=== PATIENT | male | born 1960 | race Caucasian/White ===

== ENCOUNTER 2017-10-07 10:00 | Outpatient (CLI) | payer OTHER, SELFPAY ==
[2017-10-07 13:06] LABS: Abs Immature Grans 0.02 k/cumm (0.0-0.09); Absolute Basophil Count 0.03 k/cumm (0.0-0.2); Absolute Eosinophil Count 0.17 k/cumm (0.0-0.7); Absolute Lymphocyte Count 1.32 k/cumm (1.2-3.4); Absolute Monocyte Count 0.42 k/cumm (0.11-0.7); Absolute Neutrophil Count 2.85 k/cumm (1.2-6.7); Basophils % 0.6; Eosinophils % 3.5; HGB 15.3 g/dL (13.5-17.5); Immature Grans % 0.4; Lymphocytes % 27.4; Mean Corpuscular Volume 82.3 fL (80-95); Mean Platelet Volume 9.8 fL (8.0-11.0); Monocytes % 8.7; Neutrophils % 59.4; Platelet Count 217 x1000/uL (130-400); RBC 5.47 m/cumm (4.50-6.00); RBC Distribution Width 13.6 % (11.8-14.1); White Blood Cell Count 4.81 k/cumm (4.4-10.8)
[2017-10-07 13:45] LABS: ALT 53 U/L (12-78); AST 33 U/L (15-37); Albumin 3.9 g/dL (3.4-5.0); Alkaline Phosphatase 107 U/L (46-116); Anion Gap 10.4 mmol/L (3-11); BUN 17 mg/dL (7-18); CO2 24.6 mmol/L (21.0-32.0); CREATININE 1.12 mg/dL (0.70-1.30); Calcium 8.3 mg/dL (8.5-10.1); Chloride 105 mmol/L (98-107); Cholesterol 180 mg/dL (50-200); Glucose 85 mg/dL (70-100); HDL Cholesterol 36 mg/dL (40-60); LDL CHOLESTEROL 84 mg/dL (<100); Potassium 4.3 mmol/L (3.5-5.1); Sodium 140 mmol/L (136-145); Total Protein 6.9 g/dL (6.4-8.2); Triglyceride 306 mg/dL (30-150)
== END 2017-10-07 10:01 ==
PROVIDERS: PCP Family Medicine; Visit Provider Family Medicine
DX: E78.1 Pure hyperglyceridemia (principal); J98.01 Acute bronchospasm
CPT/HCPCS: 36415; 80053; 80061; 83721; 85025

== ENCOUNTER 2019-02-16 01:16 | Outpatient (CLI) | payer OTHER, SELFPAY ==
[2019-02-16 09:18] LABS: Calculated LDL 120 mg/dL; Cholesterol 216 mg/dL (<200); Glucose 94 mg/dL (74-106); HDL Cholesterol 42 mg/dL (40-60); Triglyceride 270 mg/dL (<150)
== END 2019-02-16 01:36 ==
PROVIDERS: PCP Family Medicine; Visit Provider Family Medicine
DX: Z00.00 Encounter for general adult medical examination without abnormal findings (principal); Z13.220 Encounter for screening for lipoid disorders; Z13.1 Encounter for screening for diabetes mellitus
CPT/HCPCS: 36415; 80061; 82947

== ENCOUNTER 2020-02-07 03:01 | Outpatient (CLI) | payer OTHER, SELFPAY ==
--- NOTE | 2020-02-07 08:15 | DI.US_ITS ---
APPROVED REPORT EXAM: Comprehensive 2D, Doppler, and color-flow Echocardiogram Patient Location: Out-Patient Manager Massage Department: Jazlyn Proctor RDCS (AE) Indications: TRIPP, Murmur, FX of cardiomyopathy Other Information Study Quality: Good Conclusion Left Ventricle : The left ventricle is normal size. The left ventricular systolic function is normal. The left ventricular ejection fraction is within the normal range. There is normal left ventricular wall thickness. There is normal LV segmental wall motion. The left ventricular diastolic function is normal. LVEF is 60%. Right Ventricle : The right ventricle is normal size. The right ventricular systolic function is norm al. The RVSP is 23.0 mmHg. Atria : The left atrium size is normal. The right atrium size is normal. Mitral Valve : The mitral valve is normal in structure. Mild mitral regurgitation. No evidence of hamilton ral valve stenosis. Great Vessels : The aortic root is normal in size. The ascending aorta is mildly dilated. Aortic arch is normal in caliber. IVC is normal in size and collapses >50% with inspiration. Please see remainder of study for further details. Wall motion Left Ventricle The left ventricle is normal size. The left ventricular systolic function is normal. The left ventric ular ejection fraction is within the normal range. There is normal left ventricular wall thickness. T here is normal LV segmental wall motion. The left ventricular diastolic function is normal. There is no ventricular septal defect visualized. LVEF is 60%. Right Ventricle The right ventricle is normal size. The right ventricular systolic function is normal. The RVSP is 23 .0 mmHg. Atria The left atrium size is normal. The right atrium size is normal. The interatrial septum is intact wit h no evidence for an atrial septal defect. Aortic Valve The aortic valve is normal in structure. Aortic valve is trileaflet. There is no aortic valvular sten osis. Trace aortic regurgitation. Mitral Valve The mitral valve is normal in structure. No evidence of mitral valve stenosis. Mild mitral regurgitat ion. Tricuspid Valve The tricuspid valve is normal in structure. There is no tricuspid valve stenosis. Trace tricuspid reg urgitation. Pulmonic Valve The pulmonary valve is normal in structure. There is no pulmonic valvular stenosis. Trace pulmonic re gurgitation. Great Vessels The aortic root is normal in size. The ascending aorta is mildly dilated. Aortic arch is normal in ca liber. IVC is normal in size and collapses >50% with inspiration. Pericardium There is no pericardial effusion. 2D Dimensions IVSD d PLAX 0.91 cm M: 0.6-1.2 LV Vol A2C d MOD 133.4 mL LVPW d PLAX 0.94 cm M: 0.6 - 1.2 LV Vol A4C d MOD 120.3 mL LVID d PLAX 5.00 cm M: 4.2 - 5.8 LA vol/ BSA A2C s A-L 37.4 mL/m2 LVDs 3.35 cm M: 2.5 - 4.0 LA vol/ BSA A4C s A-L 34.3 mL/m2 Ao Root d 3.42 cm M: 3.1 - 3.7 LA Vol/ BSA Biplane s A-L 36.0 mL/m2 RA Area A4C 19.93 cm2 LA Area A4C s MOD 22.91 cm2 RA Vol/ BSA A4C s A-L 28.1 mL/m2 LA Area A2C s MOD 24.07 cm2 Ao Asc Diam d 3.77 cm M: 2.6 - 3.4 LV EF A4C MOD 61.3 % LV EF Teichholz 61.0 % LV EF A2C MOD 59.1 % LVEF (Giron's) 60.52 % M: 52 - 72 LV EF Biplane MOD 60.5 % LV Volume 93.76 mL M: 62 - 150 SV 77.47 mL LV Volume Index 43.60 mL/m2 M: 34 - 74 SV Index 36.02 mL/m2 LV Vol Biplane MOD 128.0 mL FS 32.75 % M-Mode TAPSE 2.75 cm (M/F) >1.7 LV Diastology E/A Ratio 0.9 MV E Vmax 0.61 (0.4-1.3 m/s) MV A Vmax 0.65 (0.4-1.3 m/s) MV E/A Ratio 0.89 Aortic Valve LVOT Area 3.78 cm2 AoV Area Vmax 2.59 cm2 LVOT Vmax 0.92 m/s AoV Area/ BSA (Vmax) 1.20 cm2/m2 LVOT Mean Dionicio. 0.57 m/s DARYL Mean Dionicio. 2.48 cm2 LVOT Peak Grad 3.4 mmHg DARYL Mean Dionicio. Index 1.15 cm2/m2 LVOT Mean Grad 1.6 mmHg LVOT VTI 0.192 m LVOT Diam s 2.15 cm AoV Vmax 1.34 m/s Velocity Ratio 0.68 AoV Mean Dionicio. 0.86 m/s AoV Peak Grad 7.2 mmHg LVOT SV 72.34 mL AoV Mean Grad 3.5 mmHg AoV VTI 0.231 m AoV Area VTI 3.14 cm2 AoV Area/ BSA (VTI) 1.46 cm/m2 Mitral Valve MV DT 205 (160-240 msec) MR Vmax 4.96 m/s MV PHT 59 msec MR VTI 1.838 m MV Area PHT 3.70 cm2 MR Peak Grad 98.5 mmHg MV VTI 0.249 m MR Mean Grad 76.8 mmHg MV VTI Annulus 0.264 m MR PISA Radius 0.37 cm MV Area VTI 3.08 (4.0-6.0 cm2) MR EROA 0.06 cm2 MR Aliasing Velocity 0.35 m/s MR PISA 0.86 cm2 Pulmonary Valve PV Vmax 0.81 (0.5-1.5 m/s) RVOT Peak Gr. 2.12 mmHg PV Peak Grad 2.6 mmHg RVOT Mean Gr. 1.10 mmHg PV Mean Grad 1.5 mmHg RVOT VTI 0.159 m PV VTI 0.196 m RVOT Vmax 0.73 m/s Tricuspid Valve TR Peak Grad 20.0 mmHg TR Vmax 2.24 m/s RA Pressure 3.00 mmHg RVSP (TR) 23.0 mmHg
== END 2020-02-07 03:21 ==
PROVIDERS: PCP Family Medicine; Visit Provider Family Medicine
DX: R06.00 Dyspnea, unspecified (principal); I34.0 Nonrheumatic mitral (valve) insufficiency
CPT/HCPCS: 93306

== ENCOUNTER 2020-03-03 03:32 | Outpatient (CLI) | payer OTHER, SELFPAY ==
[2020-03-04 19:36] LABS: COVID-19 RT-PCR UVMMC Result Negative (Negative)
== END 2020-03-03 03:52 ==
PROVIDERS: PCP Family Medicine; Visit Provider Family Medicine
DX: Z11.59 Encounter for screening for other viral diseases (principal); Z01.811 Encounter for preprocedural respiratory examination
CPT/HCPCS: U0003

== ENCOUNTER 2020-03-06 03:07 | Outpatient (CLI) | payer OTHER, SELFPAY ==
--- NOTE | 2020-03-07 08:01 | W.PFT ---
Date of service: 03/06/20 Time of Service: 01:02 Pulmonary Function Test Result Interpretation Spirometry: No evidence of obstructive airways disease no bronchodilator response Impression Normal spirometry, when compared to previous one from 09/19/2017, the patient has a 810 cc improvement in FVC and 730 cc improvement in FEV1. Clinical Correlation therefore is recommended.
== END 2020-03-06 03:27 ==
PROVIDERS: PCP Family Medicine; Visit Provider Family Medicine
DX: R06.00 Dyspnea, unspecified (principal)
CPT/HCPCS: 94060

== ENCOUNTER 2020-05-12 12:21 | Outpatient (REF) | payer OTHER, SELFPAY ==
--- NOTE | 2020-05-12 11:40 | PAPNONF_PTH ---
PATIENT: Yaron Sosa LOC: [facility] U#:[id number] AGE/SX: 59/M ROOM: RE05/12/[address]: Melissa Hickman : 1960 BED: DIS: 05/12/2020 SPEC #: [id number] RECD: 05/12/20 13:06 STATUS: JAH REQ #: [id number] TAVIA: 05/12/20 11:[address]: Melissa Hickman DEPT: [facility] Cytology RECD BY: Batsheva Melton ENTERED: 05/12/20 13:07 SP TYPE: JOSELO SCHMID DR: Man Gaston DO Tissues: 1 - BODY FLUID CYTO(NOT S/U/N/EM)[facility] Procedures: BODY FLUID CYTO(NOT SPU/UR/NIP/ENDOM)[facility] Comments: [id number]
--- NOTE | 2020-05-12 11:40 | BOWEL_PTH ---
PATIENT: Yaron Sosa LOC: [facility] U#:[id number] AGE/SX: 59/M ROOM: RE05/12/[address]: Melissa Hickman : 1960 BED: DIS: 05/12/2020 SPEC #: [id number] RECD: 05/12/20 12:58 STATUS: JAH REQ #: [id number] TAVIA: 05/12/20 11:[address]: Melissa Hickman DEPT: Surgical Specimen RECD BY: Batsheva Melton ENTERED: 05/12/20 12:59 SP TYPE: Bowel OTHR DR: Man Gaston DO Tissues: 1 - BIOPSY BOWEL Procedures: GROSS AND MICRO LEVEL 4 Comments: [id number]
== END 2020-05-12 12:22 | disposition home or self-care (01) ==
LOC: LBN 12:21
PROVIDERS: PCP Family Medicine; Visit Provider Surgery
DX: K62.89 Other specified diseases of anus and rectum (principal); K64.8 Other hemorrhoids
CPT/HCPCS: 88305; 88104

== ENCOUNTER 2020-05-27 03:49 | Outpatient (CLI) | payer OTHER, SELFPAY ==
[2020-05-27 08:42] LABS: Abs Immature Grans 0.01 10^3/uL (0.0-0.06); Absolute Basophil Count 0.03 10^3/uL (0.0-0.2); Absolute Eosinophil Count 0.32 10^3/uL (0.0-0.7); Absolute Lymphocyte Count 1.49 10^3/uL (1.2-3.4); Absolute Monocyte Count 0.41 10^3/uL (0.1-0.8); Absolute Neutrophil Count 2.77 10^3/uL (1.2-6.7); Basophils % 0.6; Eosinophils % 6.4; HGB 15.7 g/dL (13.5-17.5); Immature Grans % 0.2; Lymphocytes % 29.6; MCH 27.9 pg (27.0-33.0); MCHC 32.7 % (32.0-36.0); MCV 85.3 fL (80-95); MPV 9.8 fL (8.0-11.0); Monocytes % 8.2; Nucleated RBC 0 %; Platelet Count 219 10^3/uL (130-400); RBC 5.63 10^6/uL (4.36-5.78); RDW 12.6 % (11.8-14.1); WBC 5.03 10^3/uL (4.4-10.8)
[2020-05-27 09:42] LABS: ALT 126 U/L (16-63); AST 53 U/L (15-37); Alkaline Phosphatase 132 U/L (46-116); Anion Gap 8.2 mmol/L (3-11); BUN 15 mg/dL (7-18); Bilirubin, Total 0.7 mg/dL (0.2-1.0); CO2 29.8 mmol/L (21.0-32.0); CREATININE 1.1 mg/dL (0.70-1.30); Calcium 8.7 mg/dL (8.5-10.1); Calculated LDL 132 mg/dL (<100); Chloride 106 mmol/L (98-107); Cholesterol 220 mg/dL (<200); Glucose 89 mg/dL (74-106); HDL Cholesterol 46 mg/dL (40-60); Sodium 144 mmol/L (136-145); Total Protein 6.9 g/dL (6.4-8.2); Triglyceride 211 mg/dL (<150)
== END 2020-05-27 03:50 | disposition home or self-care (01) ==
LOC: LBO 03:49
PROVIDERS: PCP Family Medicine; Visit Provider Family Medicine
DX: R06.09 Other forms of dyspnea (principal); E78.5 Hyperlipidemia, unspecified
CPT/HCPCS: 36415; 80053; 80061; 85025

== ENCOUNTER 2020-10-02 15:56 | Outpatient (CLI) | payer OTHER, SELFPAY ==
[2020-10-02 17:25] LABS: ALT 59 U/L (16-63); AST 31 U/L (15-37); Albumin 3.8 g/dL (3.4-5.0); Alkaline Phosphatase 144 U/L (46-116); Bilirubin, Direct 0.1 mg/dL (0.0-0.2); Bilirubin, Total 0.4 mg/dL (0.2-1.0); Total Protein 6.6 g/dL (6.4-8.2)
== END 2020-10-02 15:57 | disposition home or self-care (01) ==
LOC: LBO 15:59
PROVIDERS: PCP Family Medicine; Visit Provider Family Medicine
DX: R79.89 Other specified abnormal findings of blood chemistry (principal)
CPT/HCPCS: 36415; 80076

== ENCOUNTER 2021-03-16 15:53 | Outpatient (CLI) | payer OTHER, SELFPAY ==
--- NOTE | 2021-03-16 | DI.RAD_ITS ---
Exam(s) XR CHEST 2V PA LATERAL EXAM: XR CHEST 2V PA LATERAL CLINICAL HISTORY: COVID-19 INFECTION, U07.1; DYSPNEA, R06.00 TECHNIQUE: 2D digital imaging was performed. COMPARISON: No exams were available for comparison FINDINGS: MEDIASTINUM: Normal. HEART: Normal. PULMONARY VASCULATURE: Normal. LUNGS: Diffuse ground-glass infiltrates left upper and lower lobes. Question of mild infiltrates at the right lung base. PLEURAL SPACE: No pleural effusion or pneumothorax. BONE:Unremarkable for age. IMPRESSION: Left-sided infiltrates and question of right lower lobe infiltrate. The findings are compatible with COVID-19 pneumonia DATA REPOSITORY: RADIATION DOSE DELIVERED:
== END 2021-03-16 16:13 ==
PROVIDERS: PCP Family Medicine; Visit Provider Nurse Practitioner Family
DX: U07.1 COVID-19 (principal); J12.82 Pneumonia due to coronavirus disease 2019
CPT/HCPCS: 71046

== ENCOUNTER 2021-04-06 15:57 | Outpatient (CLI) | payer OTHER, SELFPAY ==
--- NOTE | 2021-04-06 15:30 | DI.RAD_ITS ---
Exam(s) XR CHEST 2V PA LATERAL EXAM: XR CHEST 2V PA LATERAL CLINICAL HISTORY: COVID-19 CORONAVIRUS INFECTION 2 WEEKS AGO, F/U COVID PNEUMONIA. TECHNIQUE: 2D digital imaging was performed. COMPARISON: CR XR CHEST 2V PA LATERAL from 03/16/2021 FINDINGS: Heart size is normal. The mediastinum is not widened. There are persistent patchy infiltrates bilaterally. No pleural effusions. IMPRESSION: Persistent infiltrates. No pleural effusions.Consistent with Covid 19 pneumonia DATA REPOSITORY: RADIATION DOSE DELIVERED:
== END 2021-04-06 16:17 ==
PROVIDERS: PCP Family Medicine; Visit Provider Family Medicine
DX: U07.1 COVID-19 (principal); J12.82 Pneumonia due to coronavirus disease 2019
CPT/HCPCS: 71046

== ENCOUNTER 2021-04-28 03:06 | Outpatient (CLI) | payer OTHER, SELFPAY ==
[2021-04-28 09:15] LABS: ALT 73 U/L (16-63); AST 44 U/L (15-37); Albumin 4.1 g/dL (3.4-5.0); Alkaline Phosphatase 136 U/L (46-116); Anion Gap 8.2 mmol/L (3-11); BUN 15 mg/dL (7-18); Bilirubin, Total 0.7 mg/dL (0.2-1.0); CO2 27.8 mmol/L (21.0-32.0); CREATININE 0.8 mg/dL (0.70-1.30); Calcium 9.2 mg/dL (8.5-10.1); Chloride 106 mmol/L (98-107); Glucose 92 mg/dL (74-106); Sodium 142 mmol/L (136-145); Total Protein 6.7 g/dL (6.4-8.2)
== END 2021-04-28 03:07 | disposition home or self-care (01) ==
LOC: LBO 03:06
PROVIDERS: PCP Family Medicine; Visit Provider Student in an Organized Health Care Education/Training Program
DX: R74.8 Abnormal levels of other serum enzymes (principal); R79.89 Other specified abnormal findings of blood chemistry
CPT/HCPCS: 36415; 80053

== ENCOUNTER 2021-06-18 02:42 | Outpatient (CLI) | payer OTHER, SELFPAY ==
[2021-06-18 14:08] LABS: ALT 64 U/L (16-63); AST 40 U/L (15-37); Albumin 4.1 g/dL (3.4-5.0); Alkaline Phosphatase 120 U/L (46-116); Bilirubin, Direct 0.1 mg/dL (0.0-0.2); Bilirubin, Total 0.6 mg/dL (0.2-1.0); Total Protein 6.7 g/dL (6.4-8.2)
[2021-06-19 11:02] LABS: Hepatitis C Ab w Rflx HCV PCR Negative (Negative)
[2021-06-19 11:14] LABS: HIV-1/2 Ag & Ab Screen Negative (Negative)
== END 2021-06-18 02:43 | disposition home or self-care (01) ==
LOC: LBO 02:42
PROVIDERS: PCP Family Medicine; Visit Provider Family Medicine
DX: R74.8 Abnormal levels of other serum enzymes (principal); Z11.3 Encounter for screening for infections with a predominantly sexual mode of transmission; Z11.4 Encounter for screening for human immunodeficiency virus [HIV]
CPT/HCPCS: 36415; 80076; 86803; 87389

== ENCOUNTER 2021-12-28 22:06 | Emergency (ER) | payer OTHER, SELFPAY ==
[2021-12-28 22:18] VITALS: BP 146/88; PULSE 67; RESP 16; TEMP 36.8; O2SAT 96
--- NOTE | 2021-12-28 22:30 | ED.GENADUL_ITS ---
Discharge Plan Disposition Patient Disposition: HOME Condition: Stable Discharge Details Clinical Impression: Abrasion of elbow, left, Fall (on)(from) sidewalk curb, initial encounter Primary Care Provider: Man Gaston ED Provider: Monica Huynh Home Meds and New Rx's Prescriptions: Continued mometasone 0.1 % cream 1 applic TP DAILY PRN (Reason: psoriasis) Qty: 45 1RF Complete Multivitamin Tablet 1 tab PO DAILY cholecalciferol (vitamin D3) 50 mcg (2,000 unit) capsule 50 mcg PO DAILY ascorbic acid (vitamin C) 500 mg capsule PO tacrolimus 0.1 % ointment 1 applic TP BID PRN (Reason: rash) Qty: 60 11RF sildenafil 50 mg tablet 50 mg PO DAILY PRN (Reason: sexual activity) Qty: 20 2RF Rx Instructions: administer 30 minutes to 4 hours before activity albuterol sulfate [Ventolin HFA] 90 mcg/actuation HFA aerosol inhaler 2 puff IH Q4H PRN (Reason: shortness of breath or wheezing) Qty: 8.5 5RF Discharge Instructions Instructions: Abrasion (ED), Acute Wounds (ED) Additional Instructions: Keep clean and dry. Change the dressing daily. The tissue adhesive will begin to slough off in approximately 2 to 3 days. Wash with soap and water allowed to air dry daily. Please take Tylenol or Ibuprofen with food every 4-6 hours as needed for pain and swelling. Follow up with primary care provider in 3-5 days. Return to ED sooner if any worsening, signs of infection including increased redness swelling drainage or red streaks, or concerns. Increase oral fluids. Referrals: Man Gaston DO [Primary Care Provider] - 3 days Medical Decision Making Patient had a mechanical fall approximately an hour prior to arrival he reports he was walking outside [facility] he landed on his left side. He has abrasion and laceration noted to his left elbow. Patient is up-to-date on Tdap, I did offer x-rays which patient declined at this time. Wounds are nonsuturable there appears to be 2 different avulsion type wounds to his left elbow. Area was cleaned with chlorhexidine and sterile normal saline and tissue adhesive Dermabond applied. Bleeding is controlled at this time. This text was generated using [employer] system, please disregard any oddities of phrase or misspellings. HPI General Mode of arrival: ambulatory . Date/Time Provider Initiated Documentation: 12/28/21 22:26 . Limitations to Documentation: no limitations . Information obtained by: patient, RN notes reviewed and old records reviewed . HPI Narrative: Patient had a mechanical fall approximately an hour prior to arrival he reports he was walking outside and tripped on a [employer] vent he landed on his left side. He has abrasion and laceration noted to his left elbow. He reports that his knee is somewhat sore. He does have full range of motion no obvious deformity. He reports that he is up-to-date on his tetanus vaccination. He has a past medical history of psoriasis, dyspnea, hyperlipidemia. He did take Tylenol prior to arrival. Last tetanus was in 2020. Related Data Home Medications Medication Instructions Recorded Confirmed tacrolimus 0.1 % topical ointment 1 applic topical BID PRN rash #60 12/19/18 grams mometasone 0.1 % topical cream 1 applic topical DAILY PRN 12/20/18 12/28/21 psoriasis #45 grams ascorbic acid (vitamin C) 500 mg mg PO 01/14/20 06/05/21 capsule cholecalciferol (vitamin D3) 50 50 mcg PO DAILY 01/14/20 12/28/21 mcg (2,000 unit) capsule multivitamin,[id number] 1 tab PO DAILY 01/14/20 12/28/21 (Complete Multivitamin tablet) sildenafil 50 mg tablet 50 mg PO DAILY PRN sexual activity 06/18/21 12/28/21 #20 tabs albuterol sulfate 90 mcg/actuation 2 puff inhalation Q4H PRN 06/22/21 12/28/21 aerosol inhaler (Ventolin HFA) shortness of breath or wheezing #8.5 grams Previous Rx's Medication Instructions Recorded tacrolimus 0.1 % topical ointment 1 applic topical BID PRN rash #60 12/19/18 grams mometasone 0.1 % topical cream 1 applic topical DAILY PRN 12/20/18 psoriasis #45 grams sildenafil 50 mg tablet 50 mg PO DAILY PRN sexual activity 06/18/21 #20 tabs albuterol sulfate 90 mcg/actuation 2 puff inhalation Q4H PRN 06/22/21 aerosol inhaler (Ventolin HFA) shortness of breath or wheezing #8.5 grams Allergies Allergy/AdvReac Type Severity Reaction Status Date / Time No Known Allergies Allergy Verified 12/28/21 22:21 General Stated Complaint: Laceration NIRMAL: 4 Review of Systems Musculoskeletal Musculoskeletal: Reports as per HPI, Denies deformity and Reports joint swelling Integumentary/Breasts Skin/Breast: Reports as per HPI and Reports wounds PFSH All Active Problems (Updated 12/28/21 @ 22:56 by Monica Huynh NP) Abrasion of elbow, left (Acute) Fall (on)(from) sidewalk curb, initial encounter (Acute) Post-COVID chronic cough (Acute) Elevated alkaline phosphatase level (Acute) re-checking 01/2021 per portal question (no symptoms, but seems worthwhile), ik Synovial swelling of knee joint (Acute) Umbilical hernia without obstruction or gangrene (Acute) Reducible right inguinal hernia (Acute) Elevated LFTs (Acute) Asymptomatic 05/17 Hyperlipidemia (Acute) Allergic sinusitis (Acute) Thrombosed external hemorrhoid (Acute) Benign localized prostatic hyperplasia with lower urinary tract symptoms (LUTS) (Acute) Male erectile dysfunction (Acute) Auditory processing disorder (Acute 02/19/13) Bronchospasm (Acute 12/24/15) Dyspnea (Acute 09/14/17) High triglycerides (Acute 09/14/17) 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 Brother Intestinal cancer Colon cancer Maternal Grandfather No problems noted. Paternal Grandfather No problems noted. Maternal Grandmother No problems noted. Paternal Grandmother No problems noted. Son No problems noted. Son No problems noted. Sister Diabetes type 2 FAMILY HISTORY Diabetes Sister Diabetes type 2 Brother No problems noted. Brother No problems noted. Uncle Heart disease blockage Social History Smoking/Tobacco Use Status: Former Tobacco Use tobacco type: cigarettes Quit Date: 02/28/89 Pack-years: 10 Tobacco: How many years used: 10 Second Hand Exposure: No Smoking risk assessment performed?: Yes Alcohol Intake: current Alcohol Intake frequency: a few times a week Alcohol type: wine Drug use: Never Substance use type: does not use Adopted: No Caregiver/Support person: No Household members: spouse and children Housing: house Number of Children: 1 Communication Needs: Hard of Hearing Education Level: college Details: associates degree Do you need help understanding health information?: Rarely 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, [employer] Pets and animals: Yes Pets and animals: dog(s) Sexually active: Yes Do you think of yourself as: straight/heterosexual Current gender identity: male What is your relationship status?: How often do you talk on the phone with friends or family?: never How often do you get together with friends or relatives?: decline to answer How often do you attend judaism or sabianism services?: 1-3 times per year Do you belong to any clubs or organized social groups?: no Panel score (0-1 are the most socially isolated patients): 1 What type of physical activity do you participate in: walking, weight lifting a nd other Duration: 30-45 minutes/day Frequency: 5-6 times per week Criselda/Adventist: Oriental Orthodox Special criselda needs: No Seatbelt use: always Helmet use: Yes Helmet use: always Drive intox or ride w/intox oil truck driver: No Exam Skin Wounds: wounds noted Extrem Left upper extremity: elbow/forearm Details: abrasion and laceration; no deformity Elbow/forearm/wrist images: 1. Abrasion 2. Laceration Course Vital Signs Vital signs: Vital Signs Temperature 36.8 C 12/28/21 22:18 Pulse 67 12/28/21 22:18 Respiratory Rate 16 12/28/21 22:18 Blood Pressure 146/88 H 12/28/21 22:18 Pulse Oximetry 96 12/28/21 22:18 Temperature 36.8 C 12/28/21 22:18 Temperature Source Temporal Artery Scan 12/28/21 22:18 Pulse 67 12/28/21 22:18 Respiratory Rate 16 12/28/21 22:18 Respiratory Effort 12/28/21 22:18 Blood Pressure 146/88 H 12/28/21 22:18 Blood Pressure Position Sitting 12/28/21 22:18 Pulse Oximetry 96 12/28/21 22:18 Oxygen Delivery Method Room Air 12/28/21 22:18 Oxygen Flow Rate 0 12/28/21 22:18 Pain Level 5 12/28/21 22:18
[2021-12-28 23:59] VITALS: BP 146/88; PULSE 67; RESP 16; TEMP 36.8; O2SAT 96
== END 2021-12-28 23:13 | disposition home or self-care (01) ==
PROVIDERS: Emergency Provider Registered Nurse Emergency; PCP Family Medicine
DX: S50.312A Abrasion of left elbow, initial encounter (principal); W01.0XXA Fall on same level from slipping, tripping and stumbling without subsequent striking against object, initial encounter; Y99.0 Civilian activity done for income or pay
CPT/HCPCS: 99282

== ENCOUNTER 2022-01-08 13:15 | Outpatient (REF) | payer OTHER, SELFPAY ==
[2022-01-08 18:47] LABS: COVID-19 PCR Negative (Negative); Influenza A PCR Negative (Negative); Influenza B PCR Negative (Negative); RSV PCR Negative (Negative)
[2022-01-08 18:51] LABS: Source Nasopharynx
== END 2022-01-08 13:16 | disposition home or self-care (01) ==
LOC: LBN 13:15
PROVIDERS: PCP Family Medicine; Visit Provider Physician Assistant Medical
DX: R05.8 Other specified cough (principal); Z20.822 Contact with and (suspected) exposure to COVID-19
CPT/HCPCS: 87631; 87637; U0003

== ENCOUNTER 2023-04-19 05:01 | Outpatient (CLI) | payer OTHER, SELFPAY ==
[2023-04-19 09:13] LABS: Calculated LDL 133 mg/dL (<100); Cholesterol 198 mg/dL (<200); HDL Cholesterol 46 mg/dL (40-60); Triglyceride 96 mg/dL (<150)
[2023-04-19 14:48] LABS: ALT 55 U/L (16-63); AST 34 U/L (15-37); Albumin 3.9 g/dL (3.4-5.0); Alkaline Phosphatase 90 U/L (46-116); Bilirubin, Direct 0.1 mg/dL (0.0-0.2); Bilirubin, Total 0.7 mg/dL (0.2-1.0); Total Protein 6.8 g/dL (6.4-8.2)
== END 2023-04-19 05:02 | disposition home or self-care (01) ==
LOC: LBO 05:01
PROVIDERS: PCP Family Medicine; Visit Provider Family Medicine
DX: E78.5 Hyperlipidemia, unspecified (principal); R74.8 Abnormal levels of other serum enzymes
CPT/HCPCS: 36415; 80061; 80076

== ENCOUNTER 2024-09-11 02:49 | Outpatient (CLI) | payer OTHER, SELFPAY ==
--- NOTE | 2024-09-11 07:15 | DI.MRI_ITS ---
Exam(s) MR LOWER JOINT RT WO EXAM: MR LOWER JOINT RT WO CLINICAL HISTORY: RT medial collateral sprain,s83.401A. TECHNIQUE: Multiplanar multisequence MRI was performed. COMPARISON: No exams were available for comparison FINDINGS: BONES: There is no fracture or contusion pattern. JOINTS: In the medial femoral tibial joint there is loss of the articular cartilage overlying the medial femoral condyle and mild loss overlying the medial tibial plateau. There are small osteophytes projected medially and there is mild subchondral edema. In the lateral femoral tibial joint there is mild loss of the articular cartilage overlying the lateral tibial plateau. There also osteophytes projected laterally. There is thinning of the articular cartilage overlying the lateral patellar facet. There also osteophytes projected medially at the patellofemoral joint. There is a moderate size joint effusion. TENDONS: Extensor mechanism: Unremarkable. Medial retinaculum: Unremarkable. Lateral retinaculum: Unremarkable. Popliteus: Unremarkable. MUSCLES: There is mild muscular fatty atrophy present. MENISCI: There is a large tear of the body and posterior horn of the medial meniscus. The lateral meniscus is unremarkable. SOFT TISSUES: There is a large popliteal cyst. There is edema seen in the soft tissues of the calf and anterior to the patella. This may represent a prepatellar bursitis. LIGAMENTS: Anterior Cruciate: There is a cystic lesion associated with the anterior aspect of the distal ACL which may represent mucoid degeneration. There do appear to be intact ACL fibers. Posterior Cruciate: Unremarkable. Medial Collateral:The MCL is intact. There is some high signal on the T2 weighted images around the ligament which may represent sprain. Lateral Collateral: Unremarkable. OTHER: IMPRESSION: 1. Tricompartment moderate arthrosis of the knee. 2. Moderate joint effusion. 3. Large tear involving the body and posterior horn of the medial meniscus. 4. No evidence of an MCL tear. Fluids is seen around the ligament which may represent a sprain. 5. No evidence of a ligament tear. 6. Large popliteal cyst. 7. Question of prepatellar bursitis. DATA REPOSITORY:
--- NOTE | 2024-09-11 07:15 | DI.MRI_ITS ---
Exam(s) MR LOWER JOINT LT WO EXAM: MR LOWER JOINT LT WO CLINICAL HISTORY: Higgins's cyst,SYNOVIAL CYST POPLITEAL SPACE,M71.22. TECHNIQUE: Multiplanar multisequence MRI was performed. COMPARISON: There are no priors for comparison. FINDINGS: BONES: There is no fracture or contusion pattern. JOINTS: There is complete loss of the articular cartilage overlying the medial femoral condyle and the medial tibial plateau. There is thinning of the articular cartilage in the lateral femoral tibial joint and overlying the lateral patellar facet. There osteophytes arising from all 3 joint compartme nts. Subchondral edema is seen in the medial femoral tibial joint and the patellofemoral joint. There is a large joint effusion. TENDONS: Extensor mechanism: Unremarkable. Medial retinaculum: Unremarkable. Lateral retinaculum: Unremarkable. Popliteus: Unremarkable. MUSCLES: There is mild muscular fatty atrophy present. MENISCI: There is a tear involving the body of the medial meniscus. The lateral meniscus is unremarkable. SOFT TISSUES: There is a large popliteal cyst. LIGAMENTS: Anterior Cruciate: The anterior cruciate ligament is not visualized consistent with a tear. Posterior Cruciate: Unremarkable. Medial Collateral:Unremarkable. Lateral Collateral: Unremarkable. OTHER: IMPRESSION: 1. Marked arthrosis involving all 3 joint compartments of the knee. The findings are most marked in the medial femoral tibial joint. 2. Large joint effusion. 3. Tear involving the body of the medial meniscus. 4. Anterior cruciate ligament tear. The ligament is not visualized. This may be longstanding. 5. Large popliteal cyst. 6. Mild muscular fatty atrophy. DATA REPOSITORY:
== END 2024-09-11 03:09 ==
PROVIDERS: PCP Family Medicine; Visit Provider Family Medicine
DX: S83.241A Other tear of medial meniscus, current injury, right knee, initial encounter (principal); M71.22 Synovial cyst of popliteal space [Baker], left knee; X58.XXXA Exposure to other specified factors, initial encounter
CPT/HCPCS: 73721

== ENCOUNTER 2024-09-19 13:46 | Outpatient (CLI) | payer OTHER, SELFPAY ==
--- NOTE | 2024-09-19 11:15 | DI.RAD_ITS ---
Exam(s) XR KNEE RT 2V AP,LAT EXAM: XR KNEE RT 2V AP,LAT CLINICAL HISTORY: BILAT KNEE PAIN. TECHNIQUE: 2D digital imaging was performed. Three views. COMPARISON: MR MR LOWER JOINT LT WO from 09/11/2024 FINDINGS: BONES: No acute fracture is present. No bony destructive lesion is seen. JOINTS: [id number] narrowing of the medial femoral tibial joint space. Mild periarticular spurring. Periarticular spurring is also noted at the patella. There is mild varus angulation at the knee. Chondrocalcinosis is present. A small joint effusion is seen. SOFT TISSUE: Normal. IMPRESSION: [id number] degenerative changes. DATA REPOSITORY: RADIATION DOSE DELIVERED:
--- NOTE | 2024-09-19 11:15 | DI.RAD_ITS ---
Exam(s) XR KNEE LT 2V AP,LAT EXAM: XR KNEE LT 2V AP,LAT CLINICAL HISTORY: BILAT KNEE PAIN. TECHNIQUE: 2D digital imaging was performed. Three views. COMPARISON: CR XR KNEE RT 2V AP,LAT from 09/19/2024 FINDINGS: BONES: No acute fracture is present. No bony destructive lesion is seen. JOINTS: There is severe narrowing of the medial femoral tibial joint space with prominent periarticular spurring. There is some lateral subluxation of the tibia in relation to the femur and flattening of the tibial spines. There is varus angulation at the knee. There is widening of the lateral femoral tibial joint space. Chondrocalcinosis is faintly seen. There is mild spurring at the patellofemoral joint. A small joint effusion is seen. SOFT TISSUE: Posterior soft tissue calcification. IMPRESSION: Severe degenerative changes of the medial femoral tibial joint. DATA REPOSITORY: RADIATION DOSE DELIVERED:
== END 2024-09-19 13:47 | disposition home or self-care (01) ==
LOC: DIORS 13:46
PROVIDERS: PCP Family Medicine; Visit Provider Student in an Organized Health Care Education/Training Program
DX: M25.561 Pain in right knee (principal); M25.562 Pain in left knee; M17.0 Bilateral primary osteoarthritis of knee
CPT/HCPCS: 73560